=== PATIENT | female | born 1990 | race Asian ===

== ENCOUNTER 2023-01-20 14:08 | Outpatient (CLI) | payer BC | END 2023-01-20 23:59 | disposition home or self-care (01) | LOC: CT 14:08 | PROVIDERS: ATTEND Legal Medicine | DX: N20.0 Calculus of kidney (principal); K76.0 Fatty (change of) liver, not elsewhere classified; R59.9 Enlarged lymph nodes, unspecified; R10.31 Right lower quadrant pain ==

== ENCOUNTER 2023-01-22 11:57 | Outpatient (CLI) | payer BC ==
[2023-01-22 12:50] LABS: BASOPHILS # (AUTO) 0.1 K/uL (0.0-0.2); BASOPHILS % (AUTO) 0.7 % (0.0-2.0); BILIRUBIN,URINE NEGATIVE (NEGATIVE); COLOR,URINE YELLOW (YELLOW); EOSINOPHILS % (AUTO) 1.8 % (0.0-6.0); HEMATOCRIT 37 % (33-45); HEMOGLOBIN 12.3 g/dL (11.5-14.8); LEUKOCYTE ESTERASE ,URINE 1+ (NEGATIVE); LYMPHOCYTES # (AUTO) 1.7 K/uL (0.8-4.8); LYMPHOCYTES % (AUTO) 23.1 % (20.0-44.0); MEAN CORPUSCULAR HGB CONC 33 g/dl (31.0-36.0); MEAN CORPUSCULAR VOLUME 90 fL (82-100); MONOCYTES # (AUTO) 0.4 K/uL (0.1-1.30); MONOCYTES % (AUTO) 5.2 % (2.0-12.0); NEUTROPHILS # (AUTO) 4.9 K/uL (1.8-8.9); NEUTROPHILS % (AUTO) 69.2 % (43.0-81.0); NITRITE, URINE NEGATIVE (NEGATIVE); PLATELET COUNT (AUTO) 410 K/uL (150-450); PROTEIN,URINE NEGATIVE (NEGATIVE); RED BLOOD CELL COUNT(AUTO) 4.13 MIL/uL (4.0-5.2); UGLUCOSE NEGATIVE (NEGATIVE); UROBILINOGEN,URINE 0.2 EU/dL (0.2); WHITE BLOOD COUNT (AUTO) 7.1 K/uL (4.3-11.0)
[2023-01-22 13:00] LABS: BACTERIA,URINE Rare /HPF (None Seen); RBC,URINE 0-2 /HPF (0-2); SQUAMOUS EPITHELIAL CELL,UR Few /HPF (None Seen); WBC,URINE 0-2 /HPF (0-3)
[2023-01-22 13:20] LABS: FREE T4 (FREE THYROXINE) 1.52 ng/dL (0.76-1.46); THYROID STIMULATING HORMONE 0.327 uIU/mL (0.358-3.74)
[2023-01-22 13:50] LABS: ALBUMIN 3.7 g/dL (3.4-5.0); BILIRUBIN,TOTAL 0.5 mg/dL (0.2-1.0); CALCIUM, SERUM 9.2 mg/dL (8.5-10.1); CREATININE 0.6 mg/dL (0.6-1.3); POTASSIUM 3.6 mmol/L (3.5-5.1); TOTAL PROTEIN, SERUM 7.5 g/dL (6.4-8.2)
[2023-01-23 10:07] LABS: CARBOHYDRATE AG 19-9 29 U/mL (0-35)
== END 2023-01-22 23:59 | disposition home or self-care (01) ==
LOC: LAB 11:57
PROVIDERS: ATTEND Legal Medicine
DX: Z00.00 Encounter for general adult medical examination without abnormal findings (principal); R10.9 Unspecified abdominal pain; D64.9 Anemia, unspecified; E03.9 Hypothyroidism, unspecified
CPT/HCPCS: 36415; 80053-TC; 80061-TC; 81001; 82306; 82378; 82607-TC; 82728-TC; 83540-TC; 84439-TC; 84443-TC; 84481; 85025-TC; 86301; 86304; 87086-TC

== ENCOUNTER 2023-03-03 13:10 | Outpatient (CLI) | payer BC | END 2023-03-03 23:59 | disposition home or self-care (01) | LOC: LAB 13:10 | DX: D48.1 Neoplasm of uncertain behavior of connective and other soft tissue (principal) | CPT/HCPCS: 36415; 82565-TC ==

== ENCOUNTER 2023-03-04 09:39 | Outpatient (CLI) | payer BC ==
[2023-03-04] MEDS ORDERED: IV NS 0.9% 250 ML IV ONE (09:47)
[2023-03-04] MEDS ORDERED: IOHEXOL-300 100 ML VIAL IV ONE (09:47)
== END 2023-03-04 23:59 | disposition home or self-care (01) ==
LOC: CT 09:39
DX: D48.1 Neoplasm of uncertain behavior of connective and other soft tissue (principal); N20.0 Calculus of kidney; R59.9 Enlarged lymph nodes, unspecified
CPT/HCPCS: 74178; J7050; Q9967